=== PATIENT | male | born 1980 | race Caucasian/White ===

== ENCOUNTER 2020-09-06 09:31 | Inpatient (IN) | payer OTHER ==
[~2020-09-06] VITALS: Ht 185.4 cm; Wt 89.4 kg
--- NOTE | ~2020-09-06 | O ---
[facility] [place], [place] [address] OPERATIVE REPORT Name: MELINDA GOMEZ Room #: 443-P [facility] IN M.R.#: [id number] Admission: 09/13/20 Attend Phys: Kendrick Fernando MD Discharge: 09/14/20 Date of : 84 Report #: [id number] THIS REPORT FOR: cc: JAYLA - Family physician unknown JAYLA - Family physician unknown Kendrick Fernando MD ~ CC: JAYLA unknown Kendrick Fernando DATE OF SERVICE: 09/13/2020 PREPROCEDURAL DIAGNOSES: Large left L5-S1 herniated nucleus pulposus, left S1 radiculopathy, L5-S1 spinal stenosis, low back pain. POSTPROCEDURAL DIAGNOSES: Large left L5-S1 herniated nucleus pulposus, left S1 radiculopathy, L5-S1 spinal stenosis, low back pain. PROCEDURE: Left laminectomy, partial facetectomy and neural foraminotomy; L5 left laminectomy, partial facetectomy; S1 excision of extraordinarily large left L5-S1 herniated nucleus pulposus occluding 40% of the spinal canal. SURGEON: Kendrick Fernando M.D. SNACK STEWARD SURGEON: Luisa Bledsoe. ANESTHESIA: General via endotracheal tube. INDICATIONS: The patient has suffered an extremely large herniated disk at the L5-S1 level on the left. It extends from beyond the midline to the left side completely obliterates the lateral recess and causes a significant spinal stenosis in that it occupies approximately 40% of the spinal canal. The patient has proved refractory to all forms of multimodality conservative managements requesting that we proceed with operative intervention. He understands the risks to be , DVT, pulmonary embolism, paraplegia, loss of bowel and bladder function, loss of sexual function, the possibility of bleeding, bleeding requiring transfusion, transfusion attendant risks of AIDS and hepatitis infection, instability, the need for revision, prolonged hospital stay, dural leak, spinal headache and again he requested we proceed. DESCRIPTION OF PROCEDURE: He was brought to the operating room, administered general anesthesia via endotracheal tube. The lower extremities were treated with JUAN hose and intermittent compression stockings. He received perioperative antibiotics. He was positioned on the Ryan table in the prone position with all bony prominences padded appropriately. Care was taken to ensure the shoulders not abducted more than 90 degrees, the elbows flexed more than 90 degrees and there was no undue pressure on the cubital or carpal canals. The [address] [address] OPERATIVE REPORT Name: MELINDA GOMEZ Room #: 443-P [facility] IN M.R.#: [id number] Admission: 09/13/20 Attend Phys: Kendrick Fernando MD Discharge: 09/14/20 Date of : 84 Report #: [id number] area of the anterior superior iliac spine was well padded to protect the lateral femoral cutaneous nerve. Hips and knees were well padded and there was no pressure on the dorsum of the feet. The patient's low back was then defatted with alcohol, visualized under fluoroscopy and the pedicles of L5 and S1 were marked on the patient's back for surgical reference. We then sterilely prepped and draped, infiltrated the skin with 0.5% Marcaine, 1:200,000 epinephrine. Sharp dissection was then continued down through the skin, the subcutaneous tissues to the level of the deep fascia and then a subperiosteal dissection with Dinero and cautery dissection followed. This gave us a subperiosteal dissection of the inferior portion of L5 and the superior aspect of S1. We then cleaned the interspace and placed a clamp on what we believed to be L5. Lateral fluoroscopy proved us to be at the appropriate level. With the level now confirmed, we were able to perform a left L5 partial laminectomy that included partial facetectomy and neural foraminotomy as the size of the disk was so large felt it was imperative to get both above and below the disk to safely dissect without further compromise and minimizing the compromise to the nerve root. We then performed a hemilaminectomy on the left of S1 and were able to resect ligament and bone until we were distal to the fragment. We then carefully found the purplish distressed nerve root and carefully mobilized it, removing disk as soon as feasible to allow decompression of the nerve root and reduction and tension. We mobilized the nerve root and the superior of the spinal sac where the disk extended and we were eventually able to remove disk until it was completely flat. These were all extruded fragments into the canal. Two were significantly scarred to the inferior aspect of the dura. It took some dissection to get them free prior to removal. When complete, the spinal sac was completely free. The nerve root completely free. It could be visualized in its entire course and it was completely unencumbered. We then copiously irrigated with a liter of antibiotic-containing solution, obtained meticulous hemostasis, placed pledgets of thrombin-soaked Gelfoam over laminotomy defect after we had bone waxed the edges of the laminectomy. We then closed the deep fascial layer with 0 Ethibond in [id number] interrupted fashion, deep subQ with 0 Vicryl, superficial subQ with 2-0 Vicryl, skin with subcuticular 3-0, dressed it with benzoin, Steri-Strips, Xeroform, sterile dressing, sponges and a bioclusive. The patient was then being transported to the recovery room for closer neurovascular observation, continue prophylactic antibiotic and serial neurovascular exams until discharged to the floor when stable. Final blood loss was approximately 20 mL. There was no specimen and no apparent complications. Level was proven under fluoroscopy and appropriate findings matching the MRI were found at the time of surgery. By: [id number] Kendrick Fernando MD /nt
[2020-09-07] MEDS ORDERED: INDERAL 20 MG T20 MG PO (14:30)
[2020-09-07] MEDS ORDERED: OMEPRAZOLE 20 M20 M1 PO (14:30)
[2020-09-07] MEDS ORDERED: ZYRTEC10 M5 PO (14:31)
[2020-09-07] MEDS ORDERED: FISH OIL 1,0001 EAC9 PO (14:31)
[2020-09-07] MEDS ORDERED: MULTI VITAMIN1 EACH PO (14:31)
[2020-09-07] MEDS ORDERED: VITAMIN D-40010 MCG PO (14:32)
[2020-09-10 14:36] LABS: URINE BILIRUBIN NEGATIVE (Negative); URINE BLOOD NEGATIVE (Negative); URINE CLARITY CLEAR; URINE COLOR YELLOW; URINE GLUCOSE-RANDOM* NEGATIVE (Negative); URINE KETONES NEGATIVE (Negative); URINE LEUKOCYTES-REFLEX NEGATIVE (Negative); URINE NITRITE-REFLEX NEGATIVE (Negative); URINE PROTEIN (DIPSTICK) NEGATIVE (Negative); URINE UROBILINOGEN 0.2 E.U./dl (0.2-1.0)
[2020-09-10 14:39] LABS: ABSOLUTE NEUTROPHILS 2.3 thou/uL (1.4-8.2); BASOPHILS 0.4 % (0.0-2.0); EOSINOPHILS 7.9 % (0.0-3.0); HEMOGLOBIN 14.4 gm/dL (14.0-18.0); LYMPHOCYTES 40.4 % (24.0-44.0); MCH 30.2 pg (26.0-34.0); MCHC 33.6 g/dL (28.0-37.0); MCV 89.9 fL (80.0-100.0); MONOCYTES 8.6 % (1.0-8.0); PLATELET COUNT 162 thou/uL (150-400); POLYS 42.7 % (36.0-66.0); RBC 4.78 mil/uL (4.50-6.00); WBC 5.5 thou/uL (4.0-11.0)
[2020-09-10 14:50] LABS: APTT 31.3 Seconds (24.5-32.8); INR 1.1
[2020-09-10 14:51] LABS: ALBUMIN 4.2 g/dL (3.4-5.0); POTASSIUM 4.2 mmol/L (3.5-5.1); TOTAL BILIRUBIN 0.4 mg/dL (0.2-1.0); TOTAL PROTEIN 7.2 g/dL (6.4-8.2)
[2020-09-13 10:44] VITALS: BP 121/74
[2020-09-13 16:13] VITALS: BP 117/52
--- NOTE | 2020-09-13 17:29 | NUR ---
PATIENT ADMITTED FOM OR WITH L5-S1 LAMINECTOMY, AQUACEL DRESSING TO LOW BACK AREA C/D/I. PATIENT C/O MILD PAIN TO LOWBACK AREA, OXYCODONE 1 TABLET GIVEN DURING ADMISSION. PATIENT DENIES NAUSEA, DIET UPGRADED FROM CLEAR LIQUIDS TO REGULAR. DR ANDINO NOTIFIED ABOUT ADMISSION. 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 ADMISSION COMPLETED AND REPORT GIVEN TO BORIS/NITA.
[2020-09-13 20:03] VITALS: BP 119/65
[2020-09-13 21:45] VITALS: BP 119/65
--- NOTE | 2020-09-14 03:44 | NUR ---
PT AOX4. PT REPORTS 1-4/10 PAIN IN LOWER BACK. PAIN NOTED TO WORSEN WITH MOVEMENT AND ACTIVITY. PT RECEIVING PRN PO OXYCODONE Q4HR. PT AMBULATING INDEPENDENTLY WITH STEADY GAIT IN ROOM, ON UNIT, AND TO BATHROOM. PT TOLERATING PO INTAKE OF FLUIDS AND REGULAR DIET. PT LUMBAR DRESSING REMAINS INTACT WITHOUT DRAINAGE NOTED. PT ENCOURAGED TO NOTIFY STAFF FOR ALL NEEDS, CALL LIGHT WITHIN REACH, BED ALARM ON, BED IN LOWEST POSITION, FREQUENT MONITORING WILL CONTINUE.
[2020-09-14 04:30] VITALS: BP 106/52
[2020-09-14 05:44] LABS: CALCIUM 9.1 mg/dL (8.5-10.1); CREATININE 1.2 mg/dL (0.7-1.3)
[2020-09-14 05:46] LABS: ABSOLUTE NEUTROPHILS 9.6 thou/uL (1.4-8.2); BASOPHILS 0.2 % (0.0-2.0); HEMOGLOBIN 14.1 gm/dL (14.0-18.0); LYMPHOCYTES 9.7 % (24.0-44.0); MCH 30.5 pg (26.0-34.0); MCHC 33.7 g/dL (28.0-37.0); MCV 90.6 fL (80.0-100.0); MONOCYTES 5.1 % (1.0-8.0); PLATELET COUNT 156 thou/uL (150-400); RBC 4.63 mil/uL (4.50-6.00); RDW 13.6 % (10.5-14.5); WBC 11.3 thou/uL (4.0-11.0)
--- NOTE | 2020-09-14 07:30 | NUR ---
ASSUMED CARE OF PATIENT REPORT FROM OFF GOING SHIFT. PATIENT SLEEPING NO PAIN OR RESP DISTRESS.
[2020-09-14 07:40] VITALS: BP 124/51
--- NOTE | 2020-09-14 10:16 | NUR ---
ASSESSMENT: CM REVIEWED CHART AND SPOKE WITH PT. PT IS ALERT AND ORIENTED X4. PT IS S/P LAMINECTOMY. PT REPORTS BEING FULLY INDEPENDENT WITH ADLS AND AMBULATION. PTS GIRLFRIEND IS ON TOWN TO HELP ASSIST HIM AT DISCHARGE. PT REPORTS NO HX OF HH. PT DENIES ANY DME AT HOME OR THE NEED FOR IT. PT REPORTS HE WILL HAVE NO NEEDS FROM CM PRIOR TO DISCHARGE. PT PLANS TO RETURN HOME AT DISCHARGE.
[2020-09-14 10:30] VITALS: BP 124/51
[2020-09-14 11:49] VITALS: BP 124/51
--- NOTE | 2020-09-14 12:07 | NUR ---
DISCHARGE PAPERS REVIEWED WITH PATIENT SIGNED AND COPY IN CHART. RX'S GIVEN TO PATIENT AND IV ACSESS DCD. ALL BELONGINGS PACKED AND SENT WITH PATIENT. PATIENT'S GIRLFRIEND IN ROOM. PT W/O PAIN OR RESP DISTRESS AT THIS TIME.
[2020-09-14 12:21] VITALS: BP 124/51
== END 2020-09-14 13:36 | disposition home or self-care (01) | DRG 520 ==
LOC: OR 09:31 → TBA 09-13 09:20 → 4S 09-13 09:20 → EDSTATUS 09-13 09:41 → PRE 09-13 09:44 → OR 09-13 10:26 → 4S 09-13 15:25
DX: M51.27 Other intervertebral disc displacement, lumbosacral region (principal); M48.07 Spinal stenosis, lumbosacral region; G89.29 Other chronic pain; K21.9 Gastro-esophageal reflux disease without esophagitis; G25.0 Essential tremor; Z23 Encounter for immunization; Z90.49 Acquired absence of other specified parts of digestive tract; Z79.899 Other long term (current) drug therapy
CPT/HCPCS: 10102; 50010; 50101; 50402; 50850; 51878; 56524; 56526; 56529; 62110; 62900; 70005

== ENCOUNTER → 2020-09-10 | Outpatient (CLI) | payer OTHER ==
[~2020-09-10] MED LIST: FISH OIL 1,0001 EAC9 PO; INDERAL 20 MG T20 MG PO; MULTI VITAMIN1 EACH PO; OMEPRAZOLE 20 M20 M1 PO; VITAMIN D-40010 MCG PO; ZYRTEC10 M5 PO
== END ==
LOC: LAB
DX: Z01.812 Encounter for preprocedural laboratory examination (principal); Z20.828 Contact with and (suspected) exposure to other viral communicable diseases